=== PATIENT | female | born 1990 | race Two or more races ===

== ENCOUNTER 2019-05-06 18:46 | Emergency (ER) | payer MEDICAID ==
[~2019-05-06] VITALS: Ht 152.4 cm; Wt 68.0 kg
[2019-05-06] MEDS ORDERED: IBUPROFEN 800 MG TAB PO ONE (23:45)
[2019-05-06] MEDS ORDERED: METHOCARBAMOL 500 MG TAB PO ONE (23:45)
[2019-05-06 23:47] VITALS: BP 112/64
== END 2019-05-07 00:11 | disposition home or self-care (01) ==
LOC: ER 18:46
DX: S11.91XA Laceration without foreign body of unspecified part of neck, initial encounter (principal); S00.83XA Contusion of other part of head, initial encounter; S20.212A Contusion of left front wall of thorax, initial encounter; S20.211A Contusion of right front wall of thorax, initial encounter; S70.11XA Contusion of right thigh, initial encounter; R55 Syncope and collapse; M62.838 Other muscle spasm; Z87.440 Personal history of urinary (tract) infections; V89.2XXA Person injured in unspecified motor-vehicle accident, traffic, initial encounter; Y93.89 Activity, other specified; Y92.89 Other specified places as the place of occurrence of the external cause; Y99.8 Other external cause status
CPT/HCPCS: 70450; 72125

== ENCOUNTER 2020-09-17 18:56 | Emergency (ER) | payer MEDICAID ==
[~2020-09-17] VITALS: Ht 152.4 cm; Wt 68.0 kg
[2020-09-17 20:08] VITALS: BP 113/68
[2020-09-17 21:08] LABS: Urine Bacteria FEW /hpf (None Seen); Urine Blood 3+ /uL (Negative); Urine Mucus FEW (None Seen); Urine Specific Gravity 1.029 (1.001-1.035); Urine WBC 12 /hpf (0 - 5)
[2020-09-17 22:10] LABS: Basophils # (auto) 0 10 ^3/uL (0-0.2); Basophils % (auto) 0.3 % (0.0-2.0); Eosinophils # (auto) 0.1 10 ^3/uL (0-0.8); Eosinophils % (auto) 1.7 % (0.0-7.0); Hematocrit 37.1 % (36.0-46.0); Hemoglobin 12.3 g/dL (12.2-16.2); Lymphocytes % (auto) 40.2 % (10.0-50.0); Mean Corpuscular Hemoglobin 27.6 pg (28.0-32.0); Mean Corpuscular Hgb Conc. 33.2 g/dL (32.0-36.0); Mean Corpuscular Volume 83.2 fL (80.0-100.0); Monocytes # (auto) 0.6 10 ^3/uL (0-1.3); Neutrophils # (auto) 3.7 10 ^3/uL (1.6-8.6); Neutrophils % (auto) 49.8 % (37.0-80.0); Nucleated Red Blood Cells % 0.1 %; Platelet Count (auto) 247 10^3/uL (140-450); Red Blood Cells 4.45 10^6/uL (4.0-5.20); Red Cell Distribution Width 13.6 % (11.8-14.3); White Blood Cell 7.4 10^3/uL (4.4-10.8)
[2020-09-17 22:27] LABS: Albumin 3.6 g/dL (3.4-5.0); BUN/Creatinine Ratio 11.4; Calcium 8.5 mg/dL (8.5-10.1); Potassium 3.3 mmol/L (3.5-5.1)
[2020-09-17 22:30] LABS: Bilirubin, Total 0.2 mg/dL (0.2-1.0); Total Protein 7.8 g/dL (6.4-8.2)
[2020-09-17 22:38] LABS: INR 1.04 (0.9-1.15); Partial Thromboplastin Time 26.8 sec (23.0-31.2)
== END 2020-09-17 23:29 | disposition left against medical advice (07) ==
LOC: ER 18:57
DX: N93.9 Abnormal uterine and vaginal bleeding, unspecified (principal); Z53.21 Procedure and treatment not carried out due to patient leaving prior to being seen by health care provider
CPT/HCPCS: 36415; 80053; 81001; 84702; 85025; 85610; 85730

== ENCOUNTER 2020-09-18 11:55 | Emergency (ER) | payer MEDICAID ==
[~2020-09-18] VITALS: Ht 154.9 cm; Wt 68.0 kg
[2020-09-18 12:16] VITALS: BP 104/56
== END 2020-09-18 14:02 | disposition home or self-care (01) ==
LOC: ER 11:55
DX: O20.8 Other hemorrhage in early pregnancy (principal); Z3A.01 Less than 8 weeks gestation of pregnancy
CPT/HCPCS: 76830; 76856

== ENCOUNTER 2021-04-03 12:33 | Emergency (ER) | payer MEDICAID ==
[~2021-04-03] VITALS: Ht 152.4 cm; Wt 63.5 kg
[2021-04-03 13:27] LABS: Urine Bacteria NONE SEEN /hpf (None Seen); Urine Blood 3+ /uL (Negative); Urine Hyaline Cast FEW /lpf (0 - 2); Urine Specific Gravity 1.003 (1.001-1.035); Urine WBC 33 /hpf (0 - 5)
[2021-04-03 14:33] VITALS: BP 110/69
[2021-04-03] MEDS ORDERED: PHENAZOPYRIDINE HCL 100 MG TAB PO ONE (14:45)
== END 2021-04-03 14:58 | disposition home or self-care (01) ==
LOC: ER 12:33
DX: N30.00 Acute cystitis without hematuria (principal); Z87.440 Personal history of urinary (tract) infections
CPT/HCPCS: 81001

== ENCOUNTER 2021-06-07 17:27 | Emergency (ER) | payer MEDICAID ==
[~2021-06-07] VITALS: Ht 152.4 cm; Wt 70.3 kg
[2021-06-07 17:31] VITALS: BP 123/67
== END 2021-06-07 22:51 | disposition left against medical advice (07) ==
LOC: ER 17:27
DX: T18.5XXA Foreign body in anus and rectum, initial encounter (principal); Z53.21 Procedure and treatment not carried out due to patient leaving prior to being seen by health care provider

== ENCOUNTER 2022-05-13 15:53 | Emergency (ER) | payer MEDICAID ==
[~2022-05-13] VITALS: Ht 149.9 cm; Wt 76.2 kg
[2022-05-13 16:36] LABS: Urine Bacteria NONE SEEN /hpf (None Seen); Urine Blood TRACE /uL (Negative); Urine Mucus FEW (None Seen); Urine Specific Gravity 1.026 (1.001-1.035); Urine WBC 22 /hpf (0 - 5)
[2022-05-13 16:59] LABS: Basophils # (auto) 0 10 ^3/uL (0-0.2); Basophils % (auto) 0.3 % (0.0-2.0); Eosinophils # (auto) 0.1 10 ^3/uL (0-0.8); Eosinophils % (auto) 1.5 % (0.0-7.0); Hemoglobin 12.8 g/dL (12.2-16.2); Lymphocytes # (auto) 2.2 10 ^3/uL (0.4-5.4); Lymphocytes % (auto) 22.9 % (10.0-50.0); Mean Corpuscular Hemoglobin 28.2 pg (28.0-32.0); Mean Corpuscular Hgb Conc. 32.8 g/dL (32.0-36.0); Monocytes # (auto) 0.4 10 ^3/uL (0-1.3); Monocytes % (auto) 4.4 % (0.0-12.0); Neutrophils # (auto) 6.9 10 ^3/uL (1.6-8.6); Neutrophils % (auto) 70.9 % (37.0-80.0); Red Blood Cells 4.54 10^6/uL (4.0-5.20); Red Cell Distribution Width 13.6 % (11.8-14.3); White Blood Cell 9.8 10^3/uL (4.4-10.8)
[2022-05-13 17:14] LABS: Albumin 3.6 g/dL (3.4-5.0); Calcium 8.7 mg/dL (8.5-10.1); Potassium 3.7 mmol/L (3.5-5.1)
[2022-05-13 17:18] LABS: BUN/Creatinine Ratio 10.3; Bilirubin, Total 0.2 mg/dL (0.2-1.0); Total Protein 7.9 g/dL (6.4-8.2)
[2022-05-13 19:22] VITALS: BP 124/60
== END 2022-05-13 19:23 | disposition home or self-care (01) ==
LOC: ER 15:53
DX: N83.201 Unspecified ovarian cyst, right side (principal)
CPT/HCPCS: 36415; 76856; 80053; 81001; 81025; 83605; 83690; 84702; 85025

== ENCOUNTER 2022-09-12 15:12 | Emergency (ER) | payer MEDICAID ==
[~2022-09-12] VITALS: Ht 149.9 cm; Wt 72.5 kg
[2022-09-12] MEDS ORDERED: cefTRIAXone SOD 1,000 MG VL IM ONE (15:30)
[2022-09-12] MEDS ORDERED: HYDROcodone-ACET 5/325MG TAB PO ONE (15:30)
[2022-09-12] MEDS ORDERED: IBU600T PO (15:57)
[2022-09-12] MEDS ORDERED: CEPH-510 PO (15:57)
[2022-09-12 22:37] VITALS: BP 110/70
== END 2022-09-12 23:27 | disposition home or self-care (01) ==
LOC: ER 15:12
DX: S99.921A Unspecified injury of right foot, initial encounter (principal); F12.10 Cannabis abuse, uncomplicated; X58.XXXA Exposure to other specified factors, initial encounter; Y93.89 Activity, other specified; Y92.89 Other specified places as the place of occurrence of the external cause; Y99.8 Other external cause status
CPT/HCPCS: 73630; 96372; 99283; J0696

== ENCOUNTER 2025-04-08 16:07 | Emergency (ER) | payer MEDICAID ==
[~2025-04-08] VITALS: Ht 149.9 cm; Wt 69.1 kg
[~2025-04-08 16:07] MED LIST: CEPH-510 PO; IBU600T PO
[2025-04-08 16:22] VITALS: TEMP 98.6
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
--- NOTE | 2025-04-08 17:02 | DVH ---
EXAM: XY L FOOT 3 VIEW XRAY HISTORY: FALL, INJURY 3RD/4TH DIG COMPARISON: R FOOT COMPLETE XRAY on DOS: 09/12/22, RFOOT on DOS: 09/12/22 TECHNIQUE: Three views of the left foot were performed. FINDINGS: No acute fracture or dislocation are identified about the left foot. IMPRESSION: 1. No acute fracture of the left foot. HS:Y
[2025-04-08] MEDS: TETANUS-DIPTH-ACEL PERTUSSIS 0.5ML SYR Tdap IM ONE (18:13)
[2025-04-08 18:18] VITALS: BP 118/66; PULSE 60; RESP 16; O2SAT 97
== END 2025-04-08 18:40 | disposition home or self-care (01) ==
LOC: ER 16:07
DX: S90.122A Contusion of left lesser toe(s) without damage to nail, initial encounter (principal); S99.922A Unspecified injury of left foot, initial encounter; S91.205A Unspecified open wound of left lesser toe(s) with damage to nail, initial encounter; F12.90 Cannabis use, unspecified, uncomplicated; X58.XXXA Exposure to other specified factors, initial encounter; Y93.89 Activity, other specified; Y92.89 Other specified places as the place of occurrence of the external cause; Y99.8 Other external cause status
CPT/HCPCS: 73630; 90471; 90715